=== PATIENT | male | born 1975 | race Caucasian/White ===

== ENCOUNTER 2017-05-17 16:50 | Emergency (ER) | payer BC ==
[~2017-05-17] VITALS: Ht 180.3 cm; Wt 155.9 kg
[~2017-05-17 16:50] MED LIST: ACULAR 0.5100 DROP/5 RIGHT EYE; CIPRO500 MG PO; ERYTHROMYC1 APPLICAT RIGHT EYE; NOHOMEMEDS; NORCO 5/3251 TABLET PO; PYRIDIUM200 MG PO
[2017-05-17] MEDS ORDERED: PERCOCET 5/31 TABLET PO (20:20)
[2017-05-17] MEDS ORDERED: NAPROXEN500 MG PO (20:20)
[2017-05-17] MEDS ORDERED: SKELAXIN800 MG PO (20:20)
[2017-05-17 20:48] LABS: ADD MIUA? YES; BILIRUBIN NEGATIVE; BLOOD NEGATIVE; COLOR YELLOW ((YELLOW)); GLUCOSE (STRIP) 50; KETONES 5; LEUKOCYTES SMALL; NITRITE NEGATIVE; PROTEIN (STRIP) >=500; SPECIFIC GRAVITY 1.015 (1.000-1.030); UROBILINOGEN 0.2 MG/DL (0.2-1.0)
[2017-05-17 20:53] LABS: BACTERIA NONE SEEN /HPF; EPITHELIAL CELLS RARE /HPF; MUCUS TRACE /LPF; RED BLOOD CELLS 0-5 /HPF (0-5); UCUL ADDED? YES; WHITE BLOOD CELLS 15-20 /HPF (0-5)
[2017-05-17 21:56] VITALS: BP 128/89
[2017-05-18] MEDS ORDERED: MEDROL DOSEPAK4 MG PO (00:33)
== END 2017-05-17 22:09 | disposition home or self-care (01) ==
LOC: EME 16:50
PROVIDERS: Physician Assistant
DX: S39.012A Strain of muscle, fascia and tendon of lower back, initial encounter (principal); M62.830 Muscle spasm of back; X58.XXXA Exposure to other specified factors, initial encounter
CPT/HCPCS: 72100; 81003; 87086; 99281; 99284; J1885; J3010

== ENCOUNTER 2017-05-17 22:06 | Emergency (ER) | payer BC ==
[~2017-05-17] VITALS: Ht 180.3 cm; Wt 156.4 kg
[~2017-05-17 22:06] MED LIST changes: +NAPROXEN500 MG PO; +PERCOCET 5/31 TABLET PO; +SKELAXIN800 MG PO
[2017-05-18] MEDS ORDERED: MEDROL DOSEPAK4 MG PO (00:33)
[2017-05-18 00:53] VITALS: BP 124/103
== END 2017-05-18 00:54 | disposition home or self-care (01) ==
LOC: EME 22:06
DX: M54.9 Dorsalgia, unspecified (principal); G89.29 Other chronic pain
CPT/HCPCS: 99281; 99283; J1100; J3360